=== PATIENT | female | born 1950 | race Caucasian/White ===

== ENCOUNTER 2018-05-10 17:58 | Emergency (ER) | payer MEDICARE, MEDICAID ==
[~2018-05-10] VITALS: Ht 170.2 cm; Wt 102.7 kg
[~2018-05-10 17:58] MED LIST: ALPR-624 PO; DOXY-200 PO; HYDR-4353 PO; LEVO112T5 PO; ZOLP10TA5 PO; ibuprofen PO
[2018-05-10 18:36] VITALS: BP 164/102
--- NOTE | 2018-05-10 20:07 | NUR ---
PT REPORTING MULTIPLY CHRONIC PAIN SOURCES THAT SHE SHARES IS FIXED WITH LUBBOCK. PER PT HAS BEEN OUT SINCE FEBRUARY AND WOULD LIKE TO GET SOME MORE, PT HAS NOT FOLLOWED UP WITH A NEW PRIMARY CARE PROVIDER.
[2018-05-10] MEDS ORDERED: HYDROcodone/acetaminophen 5mg/325mg tablet PO ONE (20:20)
[2018-05-10] MEDS ORDERED: ketorolac tromethamine 15mg/ml inj. IM ONE (20:20)
--- NOTE | 2018-05-10 20:35 | NUR ---
PT EDUCATED ON NEED FOR PRIMARY CARE PROVIDER TO PRESCRIBE CHRONIC PAIN MEDICATIONS.
== END 2018-05-10 20:35 | disposition home or self-care (01) ==
LOC: ER 17:59
DX: G89.4 Chronic pain syndrome (principal); R22.1 Localized swelling, mass and lump, neck; Z88.0 Allergy status to penicillin; Z88.6 Allergy status to analgesic agent; Z88.8 Allergy status to other drugs, medicaments and biological substances; Z91.048 Other nonmedicinal substance allergy status
CPT/HCPCS: 96372; 99283; J1885

== ENCOUNTER 2018-07-10 17:08 | Emergency (ER) | payer MEDICARE, MEDICAID ==
[~2018-07-10] VITALS: Ht 170.2 cm; Wt 102.0 kg
[2018-07-10] MEDS ORDERED: normal saline 1000ML IV soln IVB ONE (17:35)
[2018-07-10] MEDS ORDERED: ondansetron/PF 4mg/2ml inj IV ONE (17:35)
--- NOTE | 2018-07-10 17:55 | NUR ---
to ct scan via rodyd accompanied by tech
--- NOTE | 2018-07-10 18:05 | NUR ---
back fro ct
[2018-07-10 18:28] LABS: ALANINE AMINOTRANSFERASE 20 U/L (12-78); ALBUMIN 2.7 G/DL (3.4-5.0); ALBUMIN/GLOBULIN RATIO 0.8 (1.1-1.5); ALKALINE PHOSPHATASE 130 IU/L (46-116); ANION GAP 10 (8-16); ASPARTATE AMINO TRANSFERASE 30 U/L (10-37); BILIRUBIN,TOTAL 0.3 MG/DL (0.1-1.0); BLOOD UREA NITROGEN 5 MG/DL (7-18); BUN/CREATININE RATIO 6.9 (6.6-38.0); CALCIUM 8.8 MG/DL (8.5-10.1); CHLORIDE 103 MMOL/L (99-107); CREATININE 0.72 MG/DL (0.40-0.90); GLUCOSE 97 MG/DL (70-104); LIPASE 74 U/L (73-393); SODIUM 138 MMOL/L (135-145); TOTAL PROTEIN 6.3 G/DL (6.4-8.2); eGFR 80 ML/MIN
[2018-07-10 18:32] LABS: POTASSIUM 2.8 MMOL/L (3.5-5.1)
[2018-07-10 18:36] LABS: BASOPHILS % (AUTO) 0.2 % (0-1); EOSINOPHILS % (AUTO) 0 % (0-6); HEMATOCRIT 39.2 % (35.0-45.0); HEMOGLOBIN 13.1 g/dl (12.0-16.0); LYMPHOCYTES # (AUTO) 2.1 X10'3 (1.1-4.8); LYMPHOCYTES % (AUTO) 17.5 % (21-51); MEAN CORPUSCULAR HGB CONC 33.5 g/dL (33.0-36.5); MEAN CORPUSCULAR VOLUME 83.8 FL (78-98); MEAN PLATELET VOLUME 8.6 FL (7.4-10.4); MONOCYTES # (AUTO) 0.7 X10'3 (0-0.9); MONOCYTES % (AUTO) 5.9 % (2-12); NEUTROPHILS # (AUTO) 9.4 X10'3 (1.8-7.7); NEUTROPHILS % (AUTO) 76.4 % (42-75); PLATELET COUNT 308 X10'3 (140-440); RED BLOOD COUNT 4.68 X10'6 (4.20-5.60); RED CELL DISTRIBUTION WIDTH 14.2 % (11.5-14.5); WHITE BLOOD COUNT 12.3 X10'3 (4.5-11.0)
--- NOTE | 2018-07-10 18:38 | NUR ---
pt walked to the br with assistance, while in the br she collected ua, dropped the lid into the toilet, pulled out her IV and bled onto the floor. I was able to get guaze and coban and put it on the site. approx 2 ml blood loss. WC back to her room. [facility] called.
[2018-07-10 18:47] LABS: CLARITY,URINE SLIGHTLY CLOUDY (Clear); COLOR,URINE STRAW (Yellow); GLUCOSE, URINE NEGATIVE (Neg); KETONES,URINE NEGATIVE (Neg); LEUKOCYTE ESTERASE ,URINE MODERATE (Neg); NITRITES, URINE POSITIVE (Neg); OCCULT BLOOD,URINE TRACE-LYSED (Neg); PH,URINE 6.5 (4.8-8.0); PROTEIN,URINE NEGATIVE (Neg); UROBILINOGEN,URINE 0.2 E.U/dL (0.2-1.0)
[2018-07-10 18:48] LABS: UA COLLECTION TYPE CLN CATCH MIDSTREAM
[2018-07-10] MEDS: potassium 10mEq/100ml NS w/LIDOcaine (10mg/bag) IV SCH ×2 (18:56→20:09)
[2018-07-10 19:11] LABS: BACTERIA,URINE 4+ /HPF (Neg); RBC,URINE 0-2 /HPF (0-2); SQUAMOUS EPITHELIAL CELL,UR MANY /LPF (FEW)
[2018-07-10 19:12] LABS: TRANSITIONAL EPI CELLS,URINE FEW /HPF
[2018-07-10] MEDS ORDERED: acetaminophen 325mg tablet PO STA (19:48)
--- NOTE | 2018-07-10 19:48 | NUR ---
pt has a little bit of a headache, spoke with dr erwin and got order for tylenol
[2018-07-10] MEDS ORDERED: POTA8TAB8 PO (20:14)
--- NOTE | 2018-07-10 21:07 | NUR ---
assisted pt to put on her underwear and pj bottoms. IVF almost done, she is sitting eob awaiting it to end and then will put on her shirt. Her family is on the way to get her, she is anxious to leave.
[2018-07-10 21:30] VITALS: BP 146/82
== END 2018-07-10 21:31 | disposition home or self-care (01) ==
LOC: ER 17:08
DX: E87.6 Hypokalemia (principal); K59.00 Constipation, unspecified; R11.2 Nausea with vomiting, unspecified; G89.29 Other chronic pain; Z98.890 Other specified postprocedural states; Z88.0 Allergy status to penicillin; Z91.048 Other nonmedicinal substance allergy status; Z79.899 Other long term (current) drug therapy
CPT/HCPCS: 36415; 74176; 80053; 81001; 83690; 85025; 96361; 96365; 96366; 96375; 99284; J2405; J3480; J7030

== ENCOUNTER 2018-10-02 12:32 | Emergency (ER) | payer MEDICARE, MEDICAID ==
[~2018-10-02] VITALS: Ht 175.3 cm; Wt 90.9 kg
[~2018-10-02 12:32] MED LIST changes: +POTA8TAB8 PO
[2018-10-02 12:36] VITALS: BP 177/79
[2018-10-02] MEDS ORDERED: HYDROcodone/acetaminophen 10/325mg tab PO ONE (12:50)
[2018-10-02] MEDS ORDERED: CEPH-571 PO (13:46)
[2018-10-02] MEDS ORDERED: TRAM50TA2 PO (13:46)
== END 2018-10-02 14:11 | disposition home or self-care (01) ==
LOC: ER 12:32
DX: S00.81XA Abrasion of other part of head, initial encounter (principal); M25.561 Pain in right knee; M54.5 Low back pain; G89.29 Other chronic pain; L03.211 Cellulitis of face; Z98.890 Other specified postprocedural states; Z88.0 Allergy status to penicillin; Z88.5 Allergy status to narcotic agent; Z79.899 Other long term (current) drug therapy; W18.49XA Other slipping, tripping and stumbling without falling, initial encounter; Y93.89 Activity, other specified; Y92.89 Other specified places as the place of occurrence of the external cause; Y99.9 Unspecified external cause status
CPT/HCPCS: 73560; 99284